=== PATIENT | female | born 1950 | race Caucasian/White ===

== ENCOUNTER 2017-04-12 14:32 | Emergency (ER) | payer MEDICARE ==
[2017-04-12] MEDS ORDERED: Diltiazem 25 MG/5 ML SDV IVPUSH ONE (14:39)
[2017-04-12] MEDS ORDERED: Sodium Chloride 0.9% 10 ML Syringe FLUSH PRN (14:39)
[2017-04-12] MEDS ORDERED: Sodium Chloride 0.9% 300 ML IV ONE (14:39)
[2017-04-12] MEDS ORDERED: Sodium Chloride 0.9% 1,000 ML IV SCH (14:45)
--- NOTE | 2017-04-12 14:52 | EDM.PDOC ---
[id number]: AFIB Time Seen by Provider: 04/12/17 14:38 Source of Information: Reports: Patient, Family History Limitations: Reports: No Limitations - History of Present Illness INITIAL COMMENTS - FREE TEXT/NARRATIVE: Patient presented to the emergency room in atrial fibrillation with rapid ventricular response. She recognized the change in rhythm. And she took 2 flecanide tablets. We believe these tablets to be 150 mg each. This is a third episode of atrial fibrillation with rapid ventricular response. 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 Medication(s) Chest Pain Score (Numeric/FACES): 0 - Related Data Allergies Allergy/AdvReac Type Severity Reaction Status Date / Time aspirin [From Fiorinal] Allergy Hives Verified 04/12/17 15:11 butalbital [From Fiorinal] Allergy Hives Verified 04/12/17 15:11 caffeine [From Fiorinal] Allergy Hives Verified 04/12/17 15:11 chromium Allergy Rash Verified 04/12/17 15:11 *formeldahyde Allergy Respiratory Uncoded 04/12/17 15:11 Distress Home Meds: Home Meds Celecoxib [CeleBREX] 100 mg PO BID 04/12/17 [History] Flecainide [Tambocor] 300 mg PO ASDIRECTED PRN 04/12/17 [History] ED ROS GENERAL - Review of Systems Review Of Systems: See Below HEENT: Reports: No Symptoms Respiratory: Reports: No Symptoms Cardiovascular: Reports: Lightheadedness, Palpitations, Other (irregular heartbeat) Endocrine: Reports: Fatigue GI/Abdominal: Reports: No Symptoms : Reports: No Symptoms Musculoskeletal: Reports: Joint Pain Skin: Reports: Dryness Neurological: Reports: No Symptoms Psychiatric: Reports: Anxiety Hematologic/Lymphatic: Reports: No Symptoms Immunologic: Reports: No Symptoms ED EXAM, GENERAL - Physical Exam Exam: See Below Exam Limited By: No Limitations General Appearance: Alert, WD/WN, Anxious Eye Exam: Bilateral Eye: Normal Inspection Ears: Normal External Exam Nose: Normal Inspection Throat/Mouth: Normal Inspection Head: Atraumatic, Normocephalic Respiratory/Chest: No Respiratory Distress Cardiovascular: Irregularly Irregular. No: Regular Rate, Rhythm GI/Abdominal: Normal Bowel Sounds, Soft, Non-Tender Back Exam: Normal Inspection Extremities: Normal Inspection Neurological: Alert, Oriented, Normal Cognition Psychiatric: Normal Affect, Anxious Skin Exam: Warm, Dry, Intact, No Rash Course - Vital Signs Last Recorded V/S: Last Vital Signs Temp 98.6 F 04/12/17 15:28 Pulse 78 04/12/17 16:04 Resp 14 04/12/17 16:04 BP 166/85 H 04/12/17 16:04 Pulse Ox 95 04/12/17 16:04 - Orders/Labs/Meds Labs: Laboratory Tests 04/12/17 04/12/17 04/12/17 Range/Units 14:44 14:44 14:44 WBC 7.8 (4.5-11.0) K/uL RBC 4.56 (3.30-5.50) M/uL Hgb 13.9 (12.0-15.0) g/dL Hct 41.7 (36.0-48.0) % MCV 91 (80-98) fL MCH 31 (27-31) pg MCHC 33 (32-36) % Plt Count 194 (150-400) K/uL Neut % (Auto) 67 H (36-66) % Lymph % (Auto) 21 L (24-44) % [place] % (Auto) 11 H (2-6) % Eos % (Auto) 1 L (2-4) % Baso % (Auto) 1 (0-1) % PT 10.7 (9.5-12.0) sec INR 1.01 (0.80-1.20) APTT 27.1 (27.0-36.0) sec Sodium 139 L (140-148) mmol/L Potassium 3.8 (3.6-5.2) mmol/L Chloride 102 (100-108) mmol/L Carbon Dioxide 28 (21-32) mmol/L Anion Gap 12.8 (5.0-14.0) mmol/L BUN 23 H (7-18) mg/dL Creatinine 0.8 (0.6-1.0) mg/dL Est Cr Clr Drug Dosing 55.21 mL/min Estimated GFR (MDRD) > 60 (>60) Glucose 101 (74-106) mg/dL Calcium 8.4 L (8.5-10.1) mg/dL Phosphorus 3.1 (2.5-4.9) mg/dL Magnesium 2.0 (1.8-2.4) mg/dL Total Bilirubin 0.4 (0.2-1.0) mg/dL AST 23 (15-37) U/L ALT 27 (12-78) U/L Alkaline Phosphatase 101 (46-116) U/L Creatine Kinase 135 (26-192) U/L Troponin I < 0.017 (0.000-0.056) ng/mL Total Protein 7.3 (6.4-8.2) g/dL Albumin 3.8 (3.4-5.0) g/dL Globulin 3.5 (2.3-3.5) g/dL Albumin/Globulin Ratio 1.1 L (1.2-2.2) Meds: Medications Discontinued Medications Generic Name Dose Route Start Last Admin Trade Name Ryanq PRN Reason Stop Dose Admin Diltiazem HCl 20 mg 04/12/17 14:39 04/12/17 15:59 Diltiazem IVPUSH 04/12/17 14:40 Not Given ONETIME ONE Sodium Chloride 300 mls @ 1,000 mls/hr 04/12/17 14:39 04/12/17 15:58 Normal Saline IV 04/12/17 14:56 1,000 mls/hr .BOLUS ONE Administration Sodium Chloride 1,000 mls @ 125 mls/hr 04/12/17 14:45 04/12/17 16:16 Normal Saline IV 125 mls/hr ASDIRECTED COCO Administration Sodium Chloride 10 ml 04/12/17 14:39 Saline Flush FLUSH ASDIRECTED PRN Keep Vein Open - Re-Assessments/Exams Free Text/Narrative Re-Assessment/Exam: 04/12/17 14:50 Patient was interviewed in room 3 while she was in atrial fibrillation with rapid ventricular response. She spontaneously converted to normal sinus rhythm rate 90 beats per minute. Shortly thereafter within 2 minutes she lost her organized rhythm looked back in atrial fibrillation with rapid ventricular response. She did take flecainide 2 tablets approximately an hour prior to the conversion to sinus rhythm, and then she returned to atrial fib with rapid response. This is her third episode of major fibrillation. 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 05/21/17 11:31 Departure - Departure Time of Disposition: 16:36 Disposition: Home, Self-Care 01 Condition: Good Clinical Impression: Paroxysmal atrial fibrillation with rapid ventricular response Instructions: Atrial Fibrillation, [id number] Referrals: PCP,None [Primary Care Provider] - Forms: ED Department Discharge Additional Instructions: Patient seen in the emergency room with discomfort in the chest and rapid heart rate, irregular in nature. The patient has gone into atrial fibrillation with rapid ventricular response again. She took flecanide, 2 tablets 150 mg each approximately 1 hour prior to coming to the emergency room. While in the emergency room she had episodes of conversion to normal sinus rhythm and then back into atrial fibrillation with rapid response. After several attempts at resolving the atrial fibrillation her rhythm returned to normal sinus has remained such. Laboratory testing revealed that there are no significant abnormalities. Chest x-ray did not show any acute cardiopulmonary abnormalities. The patient stable will be discharged to home. 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 - Problem List & Annotations (1) Paroxysmal atrial fibrillation with rapid ventricular response SNOMED Code(s): 910211820, [id number] Code(s): I48.0 - PAROXYSMAL ATRIAL FIBRILLATION Status: Acute Priority: Medium - Problem List Review Problem List Initiated/Reviewed/Updated: Yes
[2017-04-12 16:15] VITALS: BP 166/85
--- NOTE | 2017-04-15 09:04 | CR ---
Heart size within normal limits. Tortuous aorta. No focal consolidation. Difficult to exclude a subc entimeter nodular density between the right second and third ribs anteriorly and laterally. Consider non-contrast chest CT evaluation to further evaluate.
== END 2017-04-12 16:59 | disposition home or self-care (01) ==
LOC: EDBD 14:32 → JP.ED 14:32
DX: I48.0 Paroxysmal atrial fibrillation (principal); Z88.8 Allergy status to other drugs, medicaments and biological substances; Z79.899 Other long term (current) drug therapy
CPT/HCPCS: 36415; 71010; 80053; 82550; 83735; 84100; 84484; 85025; 85610; 85730; 93005; 93010; 96361; 96374; 99284; J7040; J7050